=== PATIENT | male | born 1985 | race Caucasian/White ===

== ENCOUNTER 2019-01-12 18:33 | Emergency (ER) | payer OTHER ==
--- NOTE | 2019-01-12 18:39 | EDPHY ---
H & P Time Seen by Provider: 01/12/19 18:39 HPI/ROS: CHIEF COMPLAINT: Episodic chest pain HISTORY OF PRESENT ILLNESS: Is a very healthy male presents the ED with 2 brief episodes of episodic chest pain today. The patient is healthy has no risk factors for cardiac disease. He exercises frequently. He had 2 sharp twinges of pain in the left lower costochondral area today. The patient has been pain is house and certainly has been reaching above his head more frequently over the past several days. He denies any pleuritic chest pain. He denies any asymmetric calf pain or swelling. He has no risk factors for PE or DVT. The patient is currently asymptomatic. He denies any fever, cough or congestion. He denies any complaints of dyspnea. REVIEW OF SYSTEMS: A comprehensive 10 point review of systems is otherwise negative aside from elements mentioned in the history of present illness. Source: Patient Exam Limitations: No limitations - Medical/Surgical History PMH: Past medical history: Noncontributory - Family History Significant Family History: No pertinent family hx - Social History Smoking Status: Never smoked - Physical Exam Exam: General Appearance: Alert, no distress Eyes: Pupils equal and round no pallor or injection ENT, Mouth: Mucous membranes moist Respiratory: There are no retractions, lungs are clear to auscultation Cardiovascular: Regular rate and rhythm Gastrointestinal: Abdomen is soft and nontender, no masses, bowel sounds normal Neurological: 5/5 strength noted all 4 extremities Skin: Warm and dry, no rashes Musculoskeletal: Neck is supple nontender Extremities: symmetrical, full range of motion Psychiatric: Patient is oriented X 3, there is no agitation Constitutional: Initial Vital Signs Temperature (C) 36.8 C 01/12/19 18:36 Heart Rate 63 01/12/19 18:36 Respiratory Rate 16 01/12/19 18:36 Blood Pressure 119/84 H 01/12/19 18:36 O2 Sat (%) 97 01/12/19 18:36 O2 Delivery Mode Room Air Allergies/Adverse Reactions: No Known Allergies Allergy (Unverified 01/12/19 18:40) Home Medications: Medication Instructions Recorded NK [No Known Home Meds] 01/12/19 Medical Decision Making - Diagnostics EKG Interpretation: EKG: Complete interpretation has been separately recorded in the [facility] archive. Summary impression: Sinus rhythm, rate 59, early repolarization changes are noted. Imaging Results: Chest x-ray PA/lateral: Images reviewed by myself. Impression: Normal heart size, no pneumothorax, no infiltrate. Negative study. ED Course/Re-evaluation: Patient has no risk factors for coronary artery disease and presents to the ED with atypical chest pain likely musculoskeletal nature. The patient has a heart score of 1. Troponin is normal. Chest x-ray demonstrates no evidence of pneumothorax or intrathoracic disease. At this point time I do feel the patient can be discharged home with instructions to use Motrin as needed for any mild ongoing musculoskeletal pain. The patient should return to the emergency department for any markedly worsening symptoms, difficulty breathing, exertional pain or other concerns. Differential Diagnosis: Differential diagnosis considered includes pericarditis, costochondritis, pneumothorax, acute coronary syndrome - Data Points Laboratory Results: 01/12/19 19:02 POC Troponin I 0.00 ng/mL ng/mL (0.00-0.08) Point of Care Test Results: Chemistry 01/12/19 19:02 POC Troponin I 0.00 ng/mL ng/mL (0.00-0.08) Departure - Departure Disposition: Home, Routine, Self-Care Clinical Impression: Chest wall pain Condition: Good Instructions: Chest Wall Pain (ED) Additional Instructions: 1. Take Ibuprofen or Motrin 600 mg by mouth three times a day. 2. The testing today emergency department demonstrates no evidence of a cardiac condition. You have no risk factors for coronary artery disease. I do believe the source of your pain is likely musculoskeletal in nature. You can take Tylenol and ibuprofen as needed for pain. Please return to the ED immediately for worsening symptoms, difficulty breathing, exertional chest pain or other concerns.
--- NOTE | 2019-01-12 18:54 | CPEKG ---
Test Reason : OPEN Blood Pressure : / mmHG Vent. Rate : 059 BPM Atrial Rate : 058 BPM P-R Int : 181 ms QRS Dur : 100 ms QT Int : 406 ms P-R-T Axes : 055 062 062 degrees QTc Int : 403 ms Sinus rhythm Probable left ventricular hypertrophy ST elev, probable normal early repol pattern Confirmed by Maxim Garrison ([id number] on 01/12/2019 6:53:51 PM Referred By: Maxim Garrison Confirmed By:Maxim Garrison
[2019-01-12 19:41] VITALS: BP 114/78
== END 2019-01-12 19:40 | disposition home or self-care (01) ==
DX: R07.89 Other chest pain (principal)
CPT/HCPCS: 84484-ER